=== PATIENT | male | born 1975 | race Two or more races ===

== ENCOUNTER 2022-10-03 11:10 | Inpatient (IN) | payer MEDICAID, OTHER ==
[~2022-10-03] VITALS: Ht 177.8 cm; Wt 100.2 kg
[2022-10-03] MEDS ORDERED: SODIUM CHLORIDE 0.9% 1,000 ML IV ONE (12:15)
[2022-10-03 13:10] LABS: HEMATOCRIT. 43.3 % (42.0-52.0); HEMOGLOBIN. 14.5 g/dL (14.0-18.0); MEAN CORPUSCULAR HEMOGLOBIN 27.7 pg (28.0-32.0); MEAN CORPUSCULAR VOLUME 82.7 fL (80.0-94.0); MEAN PLATELET VOLUME 9.1 fl (7.4-10.4); PLATELET 211 x1000/uL (130-400); RED BLOOD CELL COUNT 5.24 mill/uL (4.7-6.1); RED CELL DISTRIBUTION WIDTH 17.5 % (11.6-14.6)
[2022-10-03 13:20] LABS: CLARITY URINE CLEAR (CLEAR); COLOR URINE DARK YELLOW (YELLOW); KETONES URINE TRACE (NEGATIVE); LEUKOCYTE ESTERASE URINE NEGATIVE (NEGATIVE); NITRITE URINE NEGATIVE (NEGATIVE); OCCULT BLOOD URINE NEGATIVE (NEGATIVE); PROTEIN URINE 1+ (NEGATIVE); SPECIFIC GRAVITY URINE 1.032 (1.005-1.030)
[2022-10-03 13:23] LABS: CHLORIDE 113 mEq/L (98-107)
[2022-10-03 13:35] LABS: INR 1.1; PROTHROMBIN TIME 11.4 sec (9.6-11.0)
[2022-10-03 13:40] LABS: CREATINE KINASE 27 IU/L (39-308); ETHANOL BLOOD < 10 mg/dL (-10)
[2022-10-03 13:52] LABS: BG BASE EXCESS -1.9 mmol/L (-2.0-2.0); BG CARBOXYHEMOGLOBIN 0.9 % (0.5-1.5); BG DEOXYHEMOGLOBIN 4.1 % (0.0-5.0); BG FRACTION INSPIRED OXYGEN 21; BG HCO3 ACT 22.4 mmol/L (22.0-26.0); BG METHEMOGLOBIN 0.3 % (0.0-1.5); BG OXYGEN SATURATION 95.9 % (92.0-98.5); BG OXYHEMOGLOBIN 94.7 % (94.0-97.0); BG PCO2 37.1 mmHg (35.0-45.0); BG PH 7.399 (7.350-7.450); BG PO2 79.4 mmHg (75.0-100.0); BG SAMPLE SITE RIGHT RADIAL; BG TOTAL HEMOGLOBIN 14.4 g/dL (12.0-18.0); BG VENT MODE ROOM AIR
[2022-10-03] MEDS ORDERED: SODIUM CHLORIDE 0.9% 1000ML BAG (SEPSIS BOLUS) IV ONE (14:00)
[2022-10-03] MEDS ORDERED: VANCOMYCIN 1G PREMIX 200 ML IV ONE (14:00)
[2022-10-03] MEDS ORDERED: ACETAMINOPHEN 650MG SUPP PR ONE (14:00)
[2022-10-03] MEDS ORDERED: PIPERACILLIN/TAZ 3.375G PREMIX 50 ML IV ONE (14:00)
[2022-10-03] MEDS ORDERED: CEFTRIAXONE 2GM/50ML (ADDEASE) 50 ML IV ONE (14:00)
[2022-10-03] MEDS ORDERED: LIDOCAINE HCL 1% 10 MG/ML 10ML VIAL ONE (14:05)
[2022-10-03 14:23] LABS: PLATELET ESTIMATE NORMAL
[2022-10-03 14:27] LABS: *AMPHETAMINES SCREEN URINE NEGATIVE (NEGATIVE); *BARBITURATES SCREEN URINE NEGATIVE (NEGATIVE); *BENZODIAZEPINES SCREEN URINE NEGATIVE (NEGATIVE); *COCAINE SCREEN URINE NEGATIVE (NEGATIVE); CANNABINOID URINE SCREEN NEGATIVE (NEGATIVE); METHADONE URINE SCREEN NEGATIVE (NEGATIVE); OPIATES URINE SCREEN NEGATIVE (NEGATIVE); PHENCYCLIDINE URINE SCREEN NEGATIVE (NEGATIVE)
[2022-10-03] MEDS ORDERED: CEFTRIAXONE 2 G in DEXTROSE 5% WATER 50 ML IV NR (15:00)
[2022-10-03 15:24] LABS: GLUCOSE CSF 87 mg/dL (41-75)
[2022-10-03 17:07] VITALS: BP 136/84; PULSE 72; RESP 12; TEMP 97.6
[2022-10-03] MEDS ORDERED: VANCOMYCIN 1G PREMIX 200 ML IV SCH (17:30)
[2022-10-03] MEDS ORDERED: DIPHENHYDRAMINE 50MG/ML VIAL IV PRN (17:30)
[2022-10-03] MEDS: DEXT 5%/0.45% NACL 1000ML 1,000 ML IV SCH (17:30)
[2022-10-03] MEDS ORDERED: PIPERACILLIN/TAZ 3.375G PREMIX 50 ML IV SCH (17:30)
[2022-10-03] MEDS ORDERED: LORAZEPAM 2MG/ML CPJ IV PRN (17:30)
[2022-10-03] MEDS ORDERED: ACETAMINOPHEN 650MG SUPP PR PRN (17:30)
[2022-10-03] MEDS ORDERED: ONDANSETRON HCL 4MG/2ML INJ IV PRN (17:30)
[2022-10-03 17:52] LABS: CLARITY URINE TURBID (CLEAR); COLOR URINE YELLOW (YELLOW); KETONES URINE TRACE (NEGATIVE); LEUKOCYTE ESTERASE URINE NEGATIVE (NEGATIVE); NITRITE URINE NEGATIVE (NEGATIVE); OCCULT BLOOD URINE NEGATIVE (NEGATIVE); PROTEIN URINE 1+ (NEGATIVE); SPECIFIC GRAVITY URINE 1.029 (1.005-1.030)
[2022-10-03 18:00] VITALS: BP 150/86; PULSE 66; RESP 15; TEMP 97.6
[2022-10-03] MEDS: LEVETIRACETAM 500MG PREMIX 100 ML IV SCH (18:50)
[2022-10-03 20:00] VITALS: BP 115/71; PULSE 66; RESP 12; TEMP 97.5
[2022-10-03] MEDS: VANCOMYCIN 1G PREMIX 200 ML IV SCH (20:54)
[2022-10-04] VITALS: BP 108/72; PULSE 58; RESP 11; TEMP 98.7
[2022-10-04] MEDS: PIPERACILLIN/TAZOBACTAM 3.375G in DEXT 5% WATER 50ML IV SCH ×4 (00:03→22:45)
[2022-10-04] MEDS: VANCOMYCIN 1G PREMIX 200 ML IV SCH ×3 (03:50→20:40)
[2022-10-04 04:00] VITALS: BP 107/68; PULSE 61; RESP 14; TEMP 98.4
[2022-10-04 08:00] VITALS: BP 125/74; PULSE 71; RESP 17; TEMP 99
[2022-10-04] MEDS: LEVETIRACETAM 500MG PREMIX 100 ML IV SCH ×2 (08:47→21:29)
[2022-10-04 12:00] VITALS: BP 131/86; PULSE 67; RESP 13; TEMP 98.8
[2022-10-04] MEDS: DEXT 5%/0.45% NACL 1000ML 1,000 ML IV SCH ×2 (12:48→22:46)
[2022-10-04 16:00] VITALS: BP 111/76; PULSE 75; RESP 18; TEMP 98.5
[2022-10-04 20:00] VITALS: BP 115/76; PULSE 58; RESP 16; TEMP 97.7
[2022-10-05] VITALS: BP 102/69; PULSE 55; RESP 18; TEMP 98.5
[2022-10-05 02:38] LABS: CHLORIDE 113 mEq/L (98-107)
[2022-10-05 04:00] VITALS: BP 119/77; PULSE 60; RESP 20; TEMP 97.9
[2022-10-05] MEDS: VANCOMYCIN 1G PREMIX 200 ML IV SCH (04:18)
[2022-10-05] MEDS: PIPERACILLIN/TAZOBACTAM 3.375G in DEXT 5% WATER 50ML IV SCH ×3 (06:51→21:02)
[2022-10-05 07:20] LABS: CHLORIDE 111 mEq/L (98-107)
[2022-10-05 07:22] LABS: BASOPHILS % 0.3 % (0.0-2.0); EOSINOPHILS % 1.7 % (0.0-5.0); HEMATOCRIT. 35.7 % (42.0-52.0); HEMOGLOBIN. 12.1 g/dL (14.0-18.0); LYMPHOCYTES % 8.8 % (20.0-50.0); MEAN CORPUSCULAR HEMOGLOBIN 28.4 pg (28.0-32.0); MEAN CORPUSCULAR VOLUME 83.7 fL (80.0-94.0); MEAN PLATELET VOLUME 9.2 fl (7.4-10.4); NEUTROPHILS % 82.2 % (40.0-76.0); PLATELET 155 x1000/uL (130-400); RED BLOOD CELL COUNT 4.27 mill/uL (4.7-6.1); RED CELL DISTRIBUTION WIDTH 16.8 % (11.6-14.6)
[2022-10-05 08:00] VITALS: BP 127/82; PULSE 64; RESP 18; TEMP 97.8
[2022-10-05] MEDS: LEVETIRACETAM 500MG PREMIX 100 ML IV SCH ×2 (08:53→21:02)
[2022-10-05] MEDS ORDERED: POTASSIUM CHLORIDE INJ 40 MEQ in DEXT 5% WATER 250 ML IV ONE (11:15)
[2022-10-05 12:00] VITALS: BP 121/79; PULSE 56; RESP 18; TEMP 97.6
[2022-10-05] MEDS: KCL 20MEQ/100ML X 2 FOR TOTAL KCL 40MEQ/200ML IV SCH ×2 (12:56→15:33)
[2022-10-05] MEDS: DEXT 5%/0.45% NACL 1000ML 1,000 ML IV SCH (12:56)
[2022-10-05 16:00] VITALS: BP 132/81; PULSE 71; RESP 20; TEMP 98.8
[2022-10-05 20:00] VITALS: BP 120/78; PULSE 70; RESP 18; TEMP 98.5
[2022-10-06] VITALS: BP 116/73; PULSE 69; RESP 18; TEMP 99.1
[2022-10-06 04:00] VITALS: BP 130/71; PULSE 79; RESP 18; TEMP 98.5
[2022-10-06] MEDS: DEXT 5%/0.45% NACL 1000ML 1,000 ML IV SCH ×2 (04:45→04:46)
[2022-10-06] MEDS: PIPERACILLIN/TAZOBACTAM 3.375G in DEXT 5% WATER 50ML IV SCH (05:26)
[2022-10-06] MEDS ORDERED: POTASSIUM CHLORIDE INJ 40 MEQ in DEXT 5% WATER 250 ML IV ONE (08:15)
[2022-10-06] MEDS: LEVETIRACETAM 500MG PREMIX 100 ML IV SCH ×2 (08:49→21:42)
[2022-10-06] MEDS: KCL 20MEQ/100ML X 2 FOR TOTAL KCL 40MEQ/200ML IV SCH ×2 (09:23→11:39)
[2022-10-06 16:00] VITALS: BP 130/89; PULSE 71; RESP 17; TEMP 98.1
[2022-10-06] MEDS: DEXT 5%/0.45% NACL KCL 10MEQ/L 1,000 ML IV SCH (17:41)
[2022-10-06 20:00] VITALS: BP 133/83; PULSE 72; RESP 20; TEMP 99.1
[2022-10-07] VITALS: BP 132/76; PULSE 71; RESP 20; TEMP 98.6
[2022-10-07 04:00] VITALS: BP 112/73; PULSE 71; RESP 20; TEMP 98.8
[2022-10-07] MEDS: DEXT 5%/0.45% NACL KCL 10MEQ/L 1,000 ML IV SCH ×3 (04:29→22:50)
[2022-10-07 08:00] VITALS: BP 124/77; PULSE 77; RESP 18; TEMP 97.4
[2022-10-07 08:18] LABS: HEMATOCRIT 38.1 % (42.0-52.0); HEMOGLOBIN 12.6 g/dL (14.0-18.0)
[2022-10-07] MEDS: LEVETIRACETAM 500MG PREMIX 100 ML IV SCH ×2 (09:19→20:22)
[2022-10-07] MEDS: ACETAMINOPHEN 650MG SUPP PR PRN (10:50)
[2022-10-07 12:27] VITALS: BP 116/74; PULSE 66; RESP 20; TEMP 99.1
[2022-10-07 16:00] VITALS: BP 142/87; PULSE 67; RESP 19; TEMP 98
[2022-10-07] MEDS ORDERED: GADOTERATE MEGLUMINE 5 MMOL/10 ML VIAL IV ONE (19:40)
[2022-10-07 20:00] VITALS: BP 114/81; PULSE 70; RESP 18; TEMP 99.7
[2022-10-08] VITALS: BP 112/70; PULSE 74; RESP 18; TEMP 98.7
[2022-10-08 04:00] VITALS: BP 103/50; PULSE 64; RESP 20; TEMP 98.8
[2022-10-08 08:00] VITALS: BP 143/90; PULSE 58; RESP 17; TEMP 96.9
[2022-10-08] MEDS: LEVETIRACETAM 500MG PREMIX 100 ML IV SCH ×2 (09:25→20:35)
[2022-10-08 12:00] VITALS: BP 163/92; PULSE 58; RESP 20; TEMP 100
[2022-10-08 15:48] LABS: *HSV 1 DNA PCR NEGATIVE; *HSV 2 DNA PCR NEGATIVE
[2022-10-08 16:00] VITALS: BP 147/90; PULSE 69; RESP 19; TEMP 100.8
[2022-10-08 20:00] VITALS: BP 153/95; PULSE 74; RESP 18; TEMP 99
[2022-10-09] VITALS: BP 148/88; PULSE 69; RESP 18; TEMP 98.8
[2022-10-09] MEDS: LACTULOSE 20G/30ML UDC NG SCH ×4 (00:09→21:42)
[2022-10-09 04:00] VITALS: BP 141/93; PULSE 71; RESP 18; TEMP 98.8
[2022-10-09] MEDS: DEXT 5%/0.45% NACL KCL 10MEQ/L 1,000 ML IV SCH ×2 (05:18→14:42)
[2022-10-09 07:10] LABS: INR 1.1; PROTHROMBIN TIME 11.8 sec (9.6-11.0)
[2022-10-09 07:12] LABS: BASOPHILS % 0.4 % (0.0-2.0); EOSINOPHILS % 0.9 % (0.0-5.0); HEMATOCRIT. 36.5 % (42.0-52.0); HEMOGLOBIN. 12.2 g/dL (14.0-18.0); LYMPHOCYTES % 7.1 % (20.0-50.0); MEAN CORPUSCULAR HEMOGLOBIN 28.2 pg (28.0-32.0); MEAN CORPUSCULAR VOLUME 84.4 fL (80.0-94.0); MEAN PLATELET VOLUME 9.3 fl (7.4-10.4); MONOCYTES % 7.3 % (2.0-8.0); NEUTROPHILS % 84.3 % (40.0-76.0); PLATELET 189 x1000/uL (130-400); RED BLOOD CELL COUNT 4.32 mill/uL (4.7-6.1); RED CELL DISTRIBUTION WIDTH 17.8 % (11.6-14.6)
[2022-10-09 08:00] VITALS: BP 142/87; PULSE 76; RESP 19; TEMP 99
[2022-10-09] MEDS: LEVETIRACETAM 500MG PREMIX 100 ML IV SCH ×2 (09:00→21:42)
[2022-10-09] MEDS: ACETAMINOPHEN 650MG SUPP PR PRN (11:51)
[2022-10-09 12:00] VITALS: BP 140/87; PULSE 76; RESP 18; TEMP 99
[2022-10-09] MEDS: RISPERIDONE 1MG TABLET NG SCH ×2 (14:56→21:42)
[2022-10-09 16:00] VITALS: BP 150/87; PULSE 70; RESP 19; TEMP 99
[2022-10-09 20:00] VITALS: BP 131/90; PULSE 79; RESP 17; TEMP 99
[2022-10-10] MEDS: DEXT 5%/0.45% NACL KCL 10MEQ/L 1,000 ML IV SCH ×2 (00:28→10:30)
[2022-10-10 04:00] VITALS: BP 141/88; PULSE 78; RESP 18; TEMP 98.1
[2022-10-10] MEDS: LACTULOSE 20G/30ML UDC NG SCH ×3 (05:25→21:11)
[2022-10-10 06:10] LABS: BASOPHILS % 0.3 % (0.0-2.0); EOSINOPHILS % 2.1 % (0.0-5.0); HEMATOCRIT. 36.5 % (42.0-52.0); HEMOGLOBIN. 11.7 g/dL (14.0-18.0); MEAN CORPUSCULAR HEMOGLOBIN 27.6 pg (28.0-32.0); MEAN CORPUSCULAR VOLUME 85.8 fL (80.0-94.0); MEAN PLATELET VOLUME 9.3 fl (7.4-10.4); MONOCYTES % 9.6 % (2.0-8.0); PLATELET 198 x1000/uL (130-400); RED BLOOD CELL COUNT 4.26 mill/uL (4.7-6.1); RED CELL DISTRIBUTION WIDTH 17.7 % (11.6-14.6)
[2022-10-10 08:00] VITALS: BP 146/87; PULSE 81; RESP 18; TEMP 97.8
[2022-10-10] MEDS: RISPERIDONE 1MG TABLET NG SCH ×2 (08:59→21:11)
[2022-10-10] MEDS: LEVETIRACETAM 500MG PREMIX 100 ML IV SCH ×2 (08:59→21:11)
[2022-10-10 12:00] VITALS: BP 132/83; PULSE 74; RESP 18; TEMP 97.7
[2022-10-10] MEDS ORDERED: BISACODYL 10MG SUPP PR PRN (13:15)
[2022-10-10] MEDS ORDERED: DEXTROSE 5% WATER 1,000 ML IV SCH ×2 (14:45→15:15)
[2022-10-10 16:00] VITALS: BP 141/89; PULSE 69; RESP 18; TEMP 97.7
[2022-10-10 20:00] VITALS: BP 138/72; PULSE 72; RESP 18; TEMP 99
[2022-10-10] MEDS: DEXT 5% WATER + KCL 20MEQ/L 1,000 ML IV SCH (21:15)
[2022-10-11] VITALS: BP 140/82; PULSE 72; RESP 18; TEMP 99.1
[2022-10-11] MEDS: DEXT 5% WATER + KCL 20MEQ/L 1,000 ML IV SCH ×3 (02:30→22:30)
[2022-10-11 04:00] VITALS: BP 141/64; PULSE 75; RESP 18; TEMP 97
[2022-10-11] MEDS: LACTULOSE 20G/30ML UDC NG SCH ×3 (05:19→22:19)
[2022-10-11 07:43] LABS: BASOPHILS % 0.4 % (0.0-2.0); EOSINOPHILS % 3.1 % (0.0-5.0); HEMOGLOBIN. 11.5 g/dL (14.0-18.0); LYMPHOCYTES % 8.4 % (20.0-50.0); MEAN CORPUSCULAR HEMOGLOBIN 28.3 pg (28.0-32.0); MEAN PLATELET VOLUME 9.2 fl (7.4-10.4); MONOCYTES % 6.3 % (2.0-8.0); NEUTROPHILS % 81.8 % (40.0-76.0); PLATELET 196 x1000/uL (130-400); RED BLOOD CELL COUNT 4.05 mill/uL (4.7-6.1); RED CELL DISTRIBUTION WIDTH 17.6 % (11.6-14.6)
[2022-10-11 08:00] VITALS: BP 135/85; PULSE 74; RESP 16; TEMP 97.9
[2022-10-11] MEDS: LEVETIRACETAM 500MG PREMIX 100 ML IV SCH ×2 (08:15→22:19)
[2022-10-11] MEDS: RISPERIDONE 1MG TABLET NG SCH ×2 (08:15→22:18)
[2022-10-11 12:00] VITALS: BP 132/82; PULSE 73; RESP 18; TEMP 99.7
[2022-10-11 16:00] VITALS: BP 135/86; PULSE 84; RESP 18; TEMP 99.3
[2022-10-11] MEDS: DOCUSATE SODIUM SUGAR FREE 100MG/10ML UDC GT SCH (16:00)
[2022-10-11 20:00] VITALS: BP 137/91; PULSE 75; RESP 18; TEMP 97.9
[2022-10-12] VITALS: BP 126/81; PULSE 83; RESP 17; TEMP 97.7
[2022-10-12 04:00] VITALS: BP 111/79; PULSE 78; RESP 18; TEMP 98.2
[2022-10-12] MEDS: LACTULOSE 20G/30ML UDC NG SCH ×3 (05:19→22:20)
[2022-10-12 07:15] LABS: BASOPHILS % 0.2 % (0.0-2.0); EOSINOPHILS % 2.7 % (0.0-5.0); HEMATOCRIT. 35.8 % (42.0-52.0); LYMPHOCYTES % 11.3 % (20.0-50.0); MEAN CORPUSCULAR VOLUME 83.6 fL (80.0-94.0); MONOCYTES % 6.7 % (2.0-8.0); NEUTROPHILS % 79.1 % (40.0-76.0); PLATELET 185 x1000/uL (130-400); RED BLOOD CELL COUNT 4.28 mill/uL (4.7-6.1); RED CELL DISTRIBUTION WIDTH 17.2 % (11.6-14.6)
[2022-10-12 08:00] VITALS: BP 122/80; PULSE 74; RESP 17; TEMP 96.8
[2022-10-12] MEDS: LEVETIRACETAM 500MG PREMIX 100 ML IV SCH ×2 (08:02→20:30)
[2022-10-12] MEDS: DOCUSATE SODIUM SUGAR FREE 100MG/10ML UDC GT SCH (08:02)
[2022-10-12] MEDS: DEXT 5% WATER + KCL 20MEQ/L 1,000 ML IV SCH ×2 (08:02→22:28)
[2022-10-12] MEDS: RISPERIDONE 1MG TABLET NG SCH ×2 (08:03→20:37)
[2022-10-12 12:00] VITALS: BP 120/75; PULSE 70; RESP 15; TEMP 96.7
[2022-10-12 16:00] VITALS: BP 118/70; PULSE 68; RESP 17; TEMP 97.3
[2022-10-12 20:00] VITALS: BP 136/79; PULSE 70; RESP 20; TEMP 98.1
[2022-10-12] MEDS: LEVETIRACETAM 500MG/5ML CUP NG SCH (20:46)
[2022-10-13] VITALS (7 sets, daily range): BP systolic 93–140; BP diastolic 54–89; PULSE 68–86; RESP 18–20; TEMP 97.1–98.8
[2022-10-13] MEDS: LACTULOSE 20G/30ML UDC NG SCH ×3 (06:00→21:40)
[2022-10-13 06:57] LABS: CHLORIDE 109 mEq/L (98-107)
[2022-10-13] MEDS ORDERED: CEFAZOLIN 1000MG PREMIX 50 ML IV NR (07:00)
[2022-10-13 07:24] LABS: BASOPHILS % 0.3 % (0.0-2.0); EOSINOPHILS % 2.6 % (0.0-5.0); HEMATOCRIT. 34.7 % (42.0-52.0); HEMOGLOBIN. 11.6 g/dL (14.0-18.0); LYMPHOCYTES % 10.8 % (20.0-50.0); MEAN CORPUSCULAR HEMOGLOBIN 27.9 pg (28.0-32.0); MEAN CORPUSCULAR VOLUME 83.1 fL (80.0-94.0); MEAN PLATELET VOLUME 9.2 fl (7.4-10.4); MONOCYTES % 6.3 % (2.0-8.0); PLATELET 197 x1000/uL (130-400); RED BLOOD CELL COUNT 4.17 mill/uL (4.7-6.1); RED CELL DISTRIBUTION WIDTH 16.9 % (11.6-14.6)
[2022-10-13] MEDS: RISPERIDONE 1MG TABLET NG SCH ×2 (09:00→21:41)
[2022-10-13] MEDS: LEVETIRACETAM 500MG/5ML CUP NG SCH ×2 (09:00→21:40)
[2022-10-13] MEDS: DOCUSATE SODIUM SUGAR FREE 100MG/10ML UDC GT SCH (09:00)
[2022-10-13] MEDS: DEXT 5% WATER + KCL 20MEQ/L 1,000 ML IV SCH ×2 (11:05→17:44)
[2022-10-13] MEDS ORDERED: PROPOFOL 200MG/20ML VIAL IV ONE ×2 (15:24→16:07)
[2022-10-13] MEDS ORDERED: LIDOCAINE HCL 1% 10 MG/ML 10ML VIAL ONE (15:24)
[2022-10-13] MEDS ORDERED: CEFAZOLIN SODIUM 1000MG/VIAL ONE (15:26)
[2022-10-13] MEDS: SUCRALFATE 1 G/10 ML UDC PO SCH (17:51)
[2022-10-14] VITALS: BP 127/87; PULSE 89; RESP 16; TEMP 97.8
[2022-10-14] MEDS: DEXT 5% WATER + KCL 20MEQ/L 1,000 ML IV SCH ×3 (00:30→21:19)
[2022-10-14 04:00] VITALS: BP 116/83; PULSE 86; RESP 19; TEMP 97.1
[2022-10-14] MEDS: SUCRALFATE 1 G/10 ML UDC PO SCH ×4 (05:56→18:00)
[2022-10-14] MEDS: METOCLOPRAMIDE HCL 10MG/2ML VIAL IV SCH ×3 (05:56→18:00)
[2022-10-14] MEDS: LACTULOSE 20G/30ML UDC NG SCH (05:56)
[2022-10-14 08:00] VITALS: BP 105/81; PULSE 94; RESP 20; TEMP 96.6
[2022-10-14] MEDS: LEVETIRACETAM 500MG/5ML CUP NG SCH ×2 (08:29→21:19)
[2022-10-14] MEDS: DOCUSATE SODIUM SUGAR FREE 100MG/10ML UDC GT SCH ×2 (08:29→17:03)
[2022-10-14] MEDS: PANTOPRAZOLE SODIUM 40 MG/VIAL IV SCH (08:36)
[2022-10-14] MEDS: RISPERIDONE 1MG TABLET NG SCH ×2 (08:36→21:19)
[2022-10-14 09:51] LABS: BASOPHILS % 0.2 % (0.0-2.0); EOSINOPHILS % 1.5 % (0.0-5.0); HEMOGLOBIN. 12.8 g/dL (14.0-18.0); LYMPHOCYTES % 9.7 % (20.0-50.0); MEAN CORPUSCULAR HEMOGLOBIN 27.6 pg (28.0-32.0); MEAN CORPUSCULAR VOLUME 84.3 fL (80.0-94.0); MONOCYTES % 5.9 % (2.0-8.0); NEUTROPHILS % 82.7 % (40.0-76.0); PLATELET 211 x1000/uL (130-400); RED BLOOD CELL COUNT 4.63 mill/uL (4.7-6.1); RED CELL DISTRIBUTION WIDTH 16.7 % (11.6-14.6)
[2022-10-14 12:00] VITALS: BP 120/94; PULSE 82; RESP 19; TEMP 96.6
[2022-10-14] MEDS: LACTULOSE 20G/30ML UDC PEG SCH ×2 (14:07→21:18)
[2022-10-14 14:16] LABS: TOTAL IRON BINDING CAPACITY 210 ug/dL (250-450)
[2022-10-14 14:42] LABS: VITAMIN B12 SERUM 274 pg/mL (211-911)
[2022-10-14 16:00] VITALS: BP 135/87; PULSE 70; RESP 19; TEMP 97.9
[2022-10-14 20:00] VITALS: BP 116/79; PULSE 76; RESP 18; TEMP 96.8
[2022-10-15] VITALS: BP 120/83; PULSE 75; RESP 18; TEMP 96.6
[2022-10-15] MEDS: SUCRALFATE 1 G/10 ML UDC PO SCH ×4 (00:27→18:52)
[2022-10-15] MEDS: METOCLOPRAMIDE HCL 10MG/2ML VIAL IV SCH ×4 (00:27→18:52)
[2022-10-15 04:00] VITALS: BP 134/92; PULSE 70; RESP 19; TEMP 96.4
[2022-10-15] MEDS: LACTULOSE 20G/30ML UDC PEG SCH ×3 (06:00→21:59)
[2022-10-15 06:29] LABS: BASOPHILS % 0.4 % (0.0-2.0); EOSINOPHILS % 2.1 % (0.0-5.0); HEMATOCRIT. 36.6 % (42.0-52.0); HEMOGLOBIN. 12.2 g/dL (14.0-18.0); MEAN PLATELET VOLUME 9.6 fl (7.4-10.4); MONOCYTES % 7.5 % (2.0-8.0); PLATELET 195 x1000/uL (130-400); RED BLOOD CELL COUNT 4.35 mill/uL (4.7-6.1); RED CELL DISTRIBUTION WIDTH 16.7 % (11.6-14.6)
[2022-10-15] MEDS: DEXT 5% WATER + KCL 20MEQ/L 1,000 ML IV SCH ×2 (06:30→16:30)
[2022-10-15 08:00] VITALS: BP 130/87; PULSE 79; RESP 20; TEMP 98.2
[2022-10-15] MEDS: LEVETIRACETAM 500MG/5ML CUP NG SCH ×2 (08:49→21:59)
[2022-10-15] MEDS: PANTOPRAZOLE SODIUM 40 MG/VIAL IV SCH (08:49)
[2022-10-15] MEDS: DOCUSATE SODIUM SUGAR FREE 100MG/10ML UDC GT SCH ×2 (08:50→17:00)
[2022-10-15] MEDS: RISPERIDONE 1MG TABLET NG SCH ×2 (08:50→21:59)
[2022-10-15 12:00] VITALS: BP 107/69; PULSE 71; RESP 20; TEMP 97.7
[2022-10-15 16:00] VITALS: BP 131/84; PULSE 75; RESP 19; TEMP 97.5
[2022-10-15 20:00] VITALS: BP 128/83; PULSE 75; RESP 20; TEMP 97.9
[2022-10-16] VITALS: BP 134/87; PULSE 76; RESP 18; TEMP 97.9
[2022-10-16] MEDS: METOCLOPRAMIDE HCL 10MG/2ML VIAL IV SCH
[2022-10-16] MEDS ORDERED: METOCLOPRAMIDE HCL 10MG/2ML VIAL IV NR (01:45)
[2022-10-16] MEDS: DEXT 5% WATER + KCL 20MEQ/L 1,000 ML IV SCH (02:30)
[2022-10-16 06:41] LABS: BASOPHILS % 0.1 % (0.0-2.0); EOSINOPHILS % 2.1 % (0.0-5.0); HEMATOCRIT. 36.9 % (42.0-52.0); HEMOGLOBIN. 12.2 g/dL (14.0-18.0); LYMPHOCYTES % 16.8 % (20.0-50.0); MEAN CORPUSCULAR HEMOGLOBIN 27.6 pg (28.0-32.0); MEAN CORPUSCULAR VOLUME 83.5 fL (80.0-94.0); MEAN PLATELET VOLUME 9.5 fl (7.4-10.4); MONOCYTES % 8.2 % (2.0-8.0); NEUTROPHILS % 72.8 % (40.0-76.0); PLATELET 204 x1000/uL (130-400); RED BLOOD CELL COUNT 4.43 mill/uL (4.7-6.1)
[2022-10-16] MEDS: SUCRALFATE 1 G/10 ML UDC PO SCH ×4 (07:04→18:49)
[2022-10-16] MEDS: LACTULOSE 20G/30ML UDC PEG SCH ×3 (07:04→22:16)
[2022-10-16 08:00] VITALS: BP 136/88; PULSE 79; RESP 18; TEMP 97.5
[2022-10-16] MEDS: RISPERIDONE 1MG TABLET NG SCH ×2 (09:00→22:16)
[2022-10-16] MEDS: DOCUSATE SODIUM SUGAR FREE 100MG/10ML UDC GT SCH ×2 (09:00→17:37)
[2022-10-16] MEDS: LEVETIRACETAM 500MG/5ML CUP NG SCH ×2 (09:00→22:16)
[2022-10-16] MEDS: PANTOPRAZOLE SODIUM 40 MG/VIAL IV SCH (09:00)
[2022-10-16] MEDS: CYANOCOBALAMIN 1000MCG/ML VIAL IM SCH (09:00)
[2022-10-16] MEDS: FOLIC ACID 1MG TABLET GT SCH (09:00)
[2022-10-16 12:00] VITALS: BP 119/83; PULSE 82; RESP 18; TEMP 97.7
[2022-10-16 16:00] VITALS: BP 122/77; PULSE 82; RESP 20; TEMP 97.7
[2022-10-16] MEDS: ACETAMINOPHEN 650MG SUPP PR PRN (17:37)
[2022-10-16 19:40] LABS: FERRITIN 186 ng/mL (22-322)
[2022-10-16 20:00] VITALS: BP 136/80; PULSE 98; RESP 19; TEMP 97.9
[2022-10-17 04:00] VITALS: BP 121/86; PULSE 87; RESP 19; TEMP 98.5
[2022-10-17 05:53] LABS: CHLORIDE 104 mEq/L (98-107)
[2022-10-17 06:08] LABS: BASOPHILS % 0.1 % (0.0-2.0); EOSINOPHILS % 1.2 % (0.0-5.0); HEMATOCRIT. 37.2 % (42.0-52.0); HEMOGLOBIN. 12.3 g/dL (14.0-18.0); LYMPHOCYTES % 11.1 % (20.0-50.0); MEAN CORPUSCULAR HEMOGLOBIN 27.6 pg (28.0-32.0); MEAN CORPUSCULAR VOLUME 83.6 fL (80.0-94.0); MEAN PLATELET VOLUME 9.5 fl (7.4-10.4); MONOCYTES % 6.8 % (2.0-8.0); NEUTROPHILS % 80.8 % (40.0-76.0); PLATELET 214 x1000/uL (130-400); RED BLOOD CELL COUNT 4.45 mill/uL (4.7-6.1); RED CELL DISTRIBUTION WIDTH 16.2 % (11.6-14.6)
[2022-10-17] MEDS: LACTULOSE 20G/30ML UDC PEG SCH ×3 (06:33→21:57)
[2022-10-17] MEDS: SUCRALFATE 1 G/10 ML UDC PO SCH ×5 (06:33→23:35)
[2022-10-17 08:00] VITALS: BP 115/76; PULSE 99; RESP 19; TEMP 98.4
[2022-10-17] MEDS: DOCUSATE SODIUM SUGAR FREE 100MG/10ML UDC GT SCH ×2 (09:15→17:47)
[2022-10-17] MEDS: LEVETIRACETAM 500MG/5ML CUP NG SCH ×2 (09:15→21:57)
[2022-10-17] MEDS: FOLIC ACID 1MG TABLET GT SCH (09:16)
[2022-10-17] MEDS: RISPERIDONE 1MG TABLET NG SCH ×2 (09:16→21:57)
[2022-10-17] MEDS: CYANOCOBALAMIN 1000MCG/ML VIAL IM SCH (09:16)
[2022-10-17] MEDS: PANTOPRAZOLE SODIUM 40 MG/VIAL IV SCH (09:16)
[2022-10-17 12:00] VITALS: BP 126/80; PULSE 99; RESP 18; TEMP 101.8
[2022-10-17] MEDS: ACETAMINOPHEN 650MG SUPP PR PRN (13:33)
[2022-10-17] MEDS ORDERED: BISACODYL 10MG SUPP PR NR (14:45)
[2022-10-17] MEDS ORDERED: NA PHOS,M-B/NA PHOS,DI-BA ENEMA 118ML PR PRN (14:45)
[2022-10-17 15:58] VITALS: BP 123/80; PULSE 104; RESP 19; TEMP 101.3
[2022-10-17] MEDS: LORAZEPAM 0.5MG TABLET PO SCH (17:47)
[2022-10-17 20:00] VITALS: BP 124/81; PULSE 109; RESP 18; TEMP 101.1
[2022-10-18] VITALS: BP 121/78; PULSE 102; RESP 17; TEMP 99.9
[2022-10-18 04:00] VITALS: BP 112/73; PULSE 91; RESP 18; TEMP 98.1
[2022-10-18] MEDS: LACTULOSE 20G/30ML UDC PEG SCH ×3 (06:00→21:50)
[2022-10-18] MEDS: SUCRALFATE 1 G/10 ML UDC PO SCH ×4 (06:00→23:51)
[2022-10-18 08:00] VITALS: BP 115/69; PULSE 89; RESP 17; TEMP 98.1
[2022-10-18] MEDS: RISPERIDONE 1MG TABLET NG SCH ×2 (08:38→21:50)
[2022-10-18] MEDS: LEVETIRACETAM 500MG/5ML CUP NG SCH ×2 (08:38→21:50)
[2022-10-18] MEDS: LORAZEPAM 0.5MG TABLET PO SCH ×2 (08:38→17:55)
[2022-10-18] MEDS: PANTOPRAZOLE SODIUM 40 MG/VIAL IV SCH (08:38)
[2022-10-18] MEDS: DOCUSATE SODIUM SUGAR FREE 100MG/10ML UDC GT SCH ×2 (08:39→17:54)
[2022-10-18] MEDS: FOLIC ACID 1MG TABLET GT SCH (08:39)
[2022-10-18] MEDS: CYANOCOBALAMIN 1000MCG/ML VIAL IM SCH (08:39)
[2022-10-18 11:38] LABS: BASOPHILS % 0.1 % (0.0-2.0); EOSINOPHILS % 0.8 % (0.0-5.0); HEMATOCRIT. 34.6 % (42.0-52.0); HEMOGLOBIN. 11.5 g/dL (14.0-18.0); LYMPHOCYTES % 11.3 % (20.0-50.0); MEAN CORPUSCULAR HEMOGLOBIN 27.7 pg (28.0-32.0); MEAN CORPUSCULAR VOLUME 83.3 fL (80.0-94.0); MEAN PLATELET VOLUME 9.8 fl (7.4-10.4); MONOCYTES % 8.6 % (2.0-8.0); NEUTROPHILS % 79.2 % (40.0-76.0); PLATELET 205 x1000/uL (130-400); RED BLOOD CELL COUNT 4.15 mill/uL (4.7-6.1); RED CELL DISTRIBUTION WIDTH 16.1 % (11.6-14.6)
[2022-10-18 12:00] VITALS: BP 113/62; PULSE 79; RESP 18; TEMP 97.6
[2022-10-18 16:00] VITALS: BP 105/61; PULSE 87; RESP 17; TEMP 101.1
[2022-10-18 16:23] LABS: CLARITY URINE CLOUDY (CLEAR); COLOR URINE YELLOW (YELLOW); KETONES URINE NEGATIVE (NEGATIVE); LEUKOCYTE ESTERASE URINE 3+ (NEGATIVE); NITRITE URINE POSITIVE (NEGATIVE); OCCULT BLOOD URINE TRACE (NEGATIVE); PROTEIN URINE TRACE (NEGATIVE); SPECIFIC GRAVITY URINE 1.015 (1.005-1.030)
[2022-10-18] MEDS: CEFEPIME 2,000 MG in DEXT 5% WATER 100 ML IV SCH (17:54)
[2022-10-18 20:00] VITALS: BP 96/62; PULSE 89; RESP 18; TEMP 98.2
[2022-10-19] VITALS: BP 98/66; PULSE 100; RESP 19; TEMP 98
[2022-10-19 04:00] VITALS: BP 92/51; PULSE 88; RESP 18; TEMP 97.3
[2022-10-19] MEDS: LACTULOSE 20G/30ML UDC PEG SCH ×3 (06:00→21:33)
[2022-10-19] MEDS: SUCRALFATE 1 G/10 ML UDC PO SCH ×3 (06:00→18:13)
[2022-10-19] MEDS: CEFEPIME 2,000 MG in DEXT 5% WATER 100 ML IV SCH ×2 (06:45→18:07)
[2022-10-19 08:00] VITALS: BP 105/69; PULSE 81; RESP 20; TEMP 98.1
[2022-10-19] MEDS: LORAZEPAM 0.5MG TABLET PO SCH ×2 (08:22→17:09)
[2022-10-19] MEDS: PANTOPRAZOLE SODIUM 40 MG/VIAL IV SCH (08:22)
[2022-10-19] MEDS: CYANOCOBALAMIN 1000MCG/ML VIAL IM SCH (08:22)
[2022-10-19] MEDS: LEVETIRACETAM 500MG/5ML CUP NG SCH ×2 (08:22→21:33)
[2022-10-19] MEDS: DOCUSATE SODIUM SUGAR FREE 100MG/10ML UDC GT SCH ×2 (08:23→17:08)
[2022-10-19] MEDS: RISPERIDONE 1MG TABLET NG SCH ×2 (08:23→21:33)
[2022-10-19] MEDS: FOLIC ACID 1MG TABLET GT SCH (08:24)
[2022-10-19 12:00] VITALS: BP 117/81; PULSE 83; RESP 21; TEMP 97.7
[2022-10-19 16:00] VITALS: BP 118/76; PULSE 79; RESP 20; TEMP 97.2
[2022-10-19 20:00] VITALS: BP 104/72; PULSE 82; RESP 19; TEMP 99.7
[2022-10-20] VITALS: BP 102/69; PULSE 77; RESP 18; TEMP 98.3
[2022-10-20] MEDS: PIPERACILLIN/TAZOBACTAM 3.375 G in DEXTROSE 5% WATER 50 ML IV SCH (00:35)
[2022-10-20 04:00] VITALS: BP 91/64; PULSE 69; RESP 18; TEMP 99.5
[2022-10-20] MEDS: CEFEPIME 2,000 MG in DEXT 5% WATER 100 ML IV SCH (05:09)
[2022-10-20] MEDS: LACTULOSE 20G/30ML UDC PEG SCH ×3 (05:36→22:06)
[2022-10-20] MEDS: SUCRALFATE 1 G/10 ML UDC PO SCH ×4 (05:36→17:46)
[2022-10-20 06:22] LABS: BASOPHILS % 0.3 % (0.0-2.0); EOSINOPHILS % 2.4 % (0.0-5.0); LYMPHOCYTES % 14.7 % (20.0-50.0); MEAN CORPUSCULAR HEMOGLOBIN 27.7 pg (28.0-32.0); MEAN CORPUSCULAR VOLUME 83.4 fL (80.0-94.0); MEAN PLATELET VOLUME 9.5 fl (7.4-10.4); MONOCYTES % 9.5 % (2.0-8.0); NEUTROPHILS % 73.1 % (40.0-76.0); PLATELET 221 x1000/uL (130-400); RED BLOOD CELL COUNT 3.96 mill/uL (4.7-6.1); RED CELL DISTRIBUTION WIDTH 15.9 % (11.6-14.6)
[2022-10-20 07:03] LABS: CHLORIDE 105 mEq/L (98-107)
[2022-10-20 08:00] VITALS: BP 107/69; PULSE 63; RESP 19; TEMP 98
[2022-10-20] MEDS: DOCUSATE SODIUM SUGAR FREE 100MG/10ML UDC GT SCH ×2 (08:36→17:46)
[2022-10-20] MEDS: LORAZEPAM 0.5MG TABLET PO SCH ×2 (08:36→17:00)
[2022-10-20] MEDS: FOLIC ACID 1MG TABLET GT SCH (08:36)
[2022-10-20] MEDS: LEVETIRACETAM 500MG/5ML CUP NG SCH ×2 (08:37→22:06)
[2022-10-20] MEDS: RISPERIDONE 1MG TABLET NG SCH ×2 (08:37→22:06)
[2022-10-20] MEDS: PANTOPRAZOLE SODIUM 40 MG/VIAL IV SCH (08:37)
[2022-10-20 12:00] VITALS: BP 112/78; PULSE 67; RESP 18; TEMP 97.6
[2022-10-20 16:00] VITALS: BP 107/76; PULSE 74; RESP 19; TEMP 97.5
[2022-10-20 20:00] VITALS: PULSE 73; RESP 17; TEMP 97.2
[2022-10-21] VITALS: BP 109/76; PULSE 70; RESP 17; TEMP 96.8
[2022-10-21] MEDS: SUCRALFATE 1 G/10 ML UDC PO SCH ×5 (00:43→23:26)
[2022-10-21 04:00] VITALS: PULSE 64; RESP 18; TEMP 97.5
[2022-10-21] MEDS: LACTULOSE 20G/30ML UDC PEG SCH ×3 (05:43→23:55)
[2022-10-21] MEDS: PIPERACILLIN/TAZOBACTAM 3.375 G in DEXTROSE 5% WATER 50 ML IV SCH (05:47)
[2022-10-21 08:00] VITALS: BP 118/81; PULSE 71; RESP 21; TEMP 97.1
[2022-10-21] MEDS: DOCUSATE SODIUM SUGAR FREE 100MG/10ML UDC GT SCH ×2 (09:00→17:17)
[2022-10-21] MEDS: PANTOPRAZOLE SODIUM 40 MG/VIAL IV SCH (10:01)
[2022-10-21] MEDS: LORAZEPAM 0.5MG TABLET PO SCH ×2 (10:01→17:17)
[2022-10-21] MEDS: RISPERIDONE 1MG TABLET NG SCH ×2 (10:01→23:28)
[2022-10-21] MEDS: LEVETIRACETAM 500MG/5ML CUP NG SCH ×2 (10:01→21:00)
[2022-10-21] MEDS: FOLIC ACID 1MG TABLET GT SCH (10:01)
[2022-10-21 12:08] VITALS: BP 103/72; PULSE 63; RESP 20; TEMP 97.5
[2022-10-21] MEDS: CEFEPIME 2,000 MG in DEXT 5% WATER 100 ML IV SCH ×2 (13:00→23:26)
[2022-10-21 16:00] VITALS: BP 113/56; PULSE 70; RESP 70; TEMP 97.8
[2022-10-21] MEDS ORDERED: MAGNESIUM HYDROXIDE 400MG/5ML 30ML UDC GT NR (16:45)
[2022-10-21 20:00] VITALS: BP 118/96; RESP 18; TEMP 97.9
[2022-10-22] VITALS: BP 130/78; PULSE 71; RESP 18; TEMP 98.4
[2022-10-22 04:00] VITALS: BP 119/82; PULSE 75; RESP 18; TEMP 97.9
[2022-10-22] MEDS: LACTULOSE 20G/30ML UDC PEG SCH ×3 (06:00→21:06)
[2022-10-22] MEDS: SUCRALFATE 1 G/10 ML UDC PO SCH ×4 (06:08→23:46)
[2022-10-22 08:00] VITALS: BP 106/68; PULSE 73; RESP 18; TEMP 97.9
[2022-10-22] MEDS: DOCUSATE SODIUM SUGAR FREE 100MG/10ML UDC GT SCH ×2 (10:01→18:41)
[2022-10-22] MEDS: LEVETIRACETAM 500MG/5ML CUP NG SCH ×2 (10:01→20:56)
[2022-10-22] MEDS: RISPERIDONE 1MG TABLET NG SCH ×2 (10:01→20:56)
[2022-10-22] MEDS: LORAZEPAM 0.5MG TABLET PO SCH ×2 (10:02→18:42)
[2022-10-22] MEDS: PANTOPRAZOLE SODIUM 40 MG/VIAL IV SCH (10:02)
[2022-10-22] MEDS: FOLIC ACID 1MG TABLET GT SCH (10:02)
[2022-10-22] MEDS: CEFEPIME 2,000 MG in DEXT 5% WATER 100 ML IV SCH ×2 (10:03→20:14)
[2022-10-22 12:00] VITALS: BP 118/77; PULSE 68; RESP 19; TEMP 98.4
[2022-10-22 16:00] VITALS: BP 120/72; PULSE 74; RESP 18; TEMP 97.9
[2022-10-22 20:00] VITALS: BP 117/77; PULSE 69; RESP 16; TEMP 97.7
[2022-10-23] VITALS: BP 116/59; PULSE 72; RESP 18; TEMP 94.8
[2022-10-23 04:00] VITALS: BP 109/77; PULSE 67; RESP 18; TEMP 98.1
[2022-10-23] MEDS: SUCRALFATE 1 G/10 ML UDC PO SCH ×4 (06:00→23:12)
[2022-10-23] MEDS: LACTULOSE 20G/30ML UDC PEG SCH ×3 (06:00→21:44)
[2022-10-23 07:17] LABS: BASOPHILS % 0.2 % (0.0-2.0); EOSINOPHILS % 2.1 % (0.0-5.0); HEMATOCRIT. 35.1 % (42.0-52.0); HEMOGLOBIN. 11.9 g/dL (14.0-18.0); MEAN CORPUSCULAR HEMOGLOBIN 28.1 pg (28.0-32.0); MEAN CORPUSCULAR VOLUME 83.1 fL (80.0-94.0); MEAN PLATELET VOLUME 9.2 fl (7.4-10.4); MONOCYTES % 8.1 % (2.0-8.0); NEUTROPHILS % 68.6 % (40.0-76.0); PLATELET 220 x1000/uL (130-400); RED BLOOD CELL COUNT 4.22 mill/uL (4.7-6.1); RED CELL DISTRIBUTION WIDTH 15.7 % (11.6-14.6)
[2022-10-23 07:47] LABS: CHLORIDE 103 mEq/L (98-107)
[2022-10-23 08:00] VITALS: BP 101/69; PULSE 71; RESP 20; TEMP 98.6
[2022-10-23] MEDS: CEFEPIME 2,000 MG in DEXT 5% WATER 100 ML IV SCH ×2 (08:48→20:39)
[2022-10-23] MEDS: FOLIC ACID 1MG TABLET GT SCH (08:48)
[2022-10-23] MEDS: RISPERIDONE 1MG TABLET NG SCH ×2 (08:48→20:39)
[2022-10-23] MEDS: PANTOPRAZOLE SODIUM 40 MG/VIAL IV SCH (08:49)
[2022-10-23] MEDS: LEVETIRACETAM 500MG/5ML CUP NG SCH ×2 (08:49→20:39)
[2022-10-23] MEDS: DOCUSATE SODIUM SUGAR FREE 100MG/10ML UDC GT SCH ×2 (08:49→16:56)
[2022-10-23 12:00] VITALS: BP 104/70; PULSE 73; RESP 20; TEMP 98.4
[2022-10-23 16:00] VITALS: BP 107/71; PULSE 70; RESP 19; TEMP 98.8
[2022-10-23 20:00] VITALS: BP 112/69; PULSE 70; RESP 18; TEMP 97.9
[2022-10-24] VITALS: BP 108/70; PULSE 68; RESP 18; TEMP 98.9
[2022-10-24 04:00] VITALS: BP 98/63; PULSE 73; RESP 18; TEMP 98.9
[2022-10-24] MEDS: SUCRALFATE 1 G/10 ML UDC PO SCH (06:10)
[2022-10-24] MEDS: LACTULOSE 20G/30ML UDC PEG SCH (06:10)
[2022-10-24] MEDS: FOLIC ACID 1MG TABLET GT SCH (08:06)
[2022-10-24] MEDS: LEVETIRACETAM 500MG/5ML CUP NG SCH (08:06)
[2022-10-24] MEDS: DOCUSATE SODIUM SUGAR FREE 100MG/10ML UDC GT SCH (08:06)
[2022-10-24] MEDS: CEFEPIME 2,000 MG in DEXT 5% WATER 100 ML IV SCH (08:06)
[2022-10-24] MEDS: PANTOPRAZOLE SODIUM 40 MG/VIAL IV SCH (08:06)
[2022-10-24] MEDS: RISPERIDONE 1MG TABLET NG SCH (08:06)
[2022-10-24 11:07] VITALS: BP 108/70; PULSE 73; TEMP 98.9; O2SAT 98
[2022-10-24 12:00] VITALS: BP 123/56; PULSE 69; RESP 20; TEMP 98.4
== END 2022-10-24 12:09 | DRG 720 ==
LOC: ER 11:10 → 3WST 14:41 → EDBEDREQTM 14:43 → EDBEDREQ 14:43 → 6EST 10-06 14:40
PROVIDERS: ADMIT Internal Medicine; ATTEND Internal Medicine
PROC: 009U3ZX Drainage of Spinal Canal, Percutaneous Approach, Diagnostic (ICD-10-PCS; principal; 2022-10-03)
PROC: B01B1ZZ Fluoroscopy of Spinal Cord using Low Osmolar Contrast (ICD-10-PCS; 2022-10-03)
PROC: 4A00X4Z Measurement of Central Nervous Electrical Activity, External Approach (ICD-10-PCS; 2022-10-07)
PROC: 0DH63UZ Insertion of Feeding Device into Stomach, Percutaneous Approach (ICD-10-PCS; 2022-10-13)
PROC: 0DB68ZX Excision of Stomach, Via Natural or Artificial Opening Endoscopic, Diagnostic (ICD-10-PCS; 2022-10-13)
DX: A41.9 Sepsis, unspecified organism (principal); G93.41 Metabolic encephalopathy; E87.20 Acidosis, unspecified; E44.0 Moderate protein-calorie malnutrition; E72.20 Disorder of urea cycle metabolism, unspecified; K22.10 Ulcer of esophagus without bleeding; N17.9 Acute kidney failure, unspecified; E87.1 Hypo-osmolality and hyponatremia; E87.0 Hyperosmolality and hypernatremia; R65.20 Severe sepsis without septic shock; N39.0 Urinary tract infection, site not specified; Z20.822 Contact with and (suspected) exposure to COVID-19; F32.A Depression, unspecified; I10 Essential (primary) hypertension; Z99.3 Dependence on wheelchair; E86.9 Volume depletion, unspecified; K80.20 Calculus of gallbladder without cholecystitis without obstruction; M20.41 Other hammer toe(s) (acquired), right foot; G40.909 Epilepsy, unspecified, not intractable, without status epilepticus; E87.6 Hypokalemia; E66.9 Obesity, unspecified; R74.01 Elevation of levels of liver transaminase levels; S90.212A Contusion of left great toe with damage to nail, initial encounter; K44.9 Diaphragmatic hernia without obstruction or gangrene; K29.70 Gastritis, unspecified, without bleeding; B96.5 Pseudomonas (aeruginosa) (mallei) (pseudomallei) as the cause of diseases classified elsewhere; Z86.73 Personal history of transient ischemic attack (TIA), and cerebral infarction without residual deficits; Z68.31 Body mass index [BMI] 31.0-31.9, adult; X58.XXXA Exposure to other specified factors, initial encounter; Y93.89 Activity, other specified; Y92.89 Other specified places as the place of occurrence of the external cause; Y99.8 Other external cause status
CPT/HCPCS: 36415; 36600; 62328; 70551; 70552; 70553; 71045; 74018; 76705; 76770; 80048; 80053; 80076; 80202; 80305; 80307; 80320; 80329; 81003; 82140; 82248; 82375; 82550; 82607; 82728; 82746; 82805; 82945; 82962; 83520; 83540; 83550; 83605; 83735; 83880; 84145; 84155; 84157; 84165; 84443; 84484; 85014; 85018; 85025; 85651; 86038; 86160; 86256; 86592; 87070; 87186; 87426; 87529; 87804; 88305; 88312; 88313; 93005; 93970; 95816; 97110; 97162; 97166; 97530; 99291; A9577; C1893; C9113; J0690; J0692; J0696; J1953; J2543; J2704; J2765; J3370; J3420; J3480; J3490; J7030; J7060; G0480

== ENCOUNTER 2022-12-20 16:17 | Inpatient (IN) | payer MEDICAID, OTHER ==
[~2022-12-20] VITALS: Ht 182.9 cm; Wt 84.8 kg
[2022-12-20] MEDS ORDERED: HYDROCODONE/ACETAMINOPHEN 5/325MG TABLET PO STA (16:55)
[2022-12-20 18:00] LABS: BASOPHILS % 0.2 % (0.0-2.0); EOSINOPHILS % 0.5 % (0.0-5.0); HEMATOCRIT. 43.3 % (42.0-52.0); HEMOGLOBIN. 14.3 g/dL (14.0-18.0); LYMPHOCYTES % 9.5 % (20.0-50.0); MEAN CORPUSCULAR HEMOGLOBIN 27.8 pg (28.0-32.0); MEAN CORPUSCULAR VOLUME 84.3 fL (80.0-94.0); MEAN PLATELET VOLUME 8.9 fl (7.4-10.4); MONOCYTES % 7.5 % (2.0-8.0); NEUTROPHILS % 82.3 % (40.0-76.0); PLATELET 197 x1000/uL (130-400); RED BLOOD CELL COUNT 5.14 mill/uL (4.7-6.1); RED CELL DISTRIBUTION WIDTH 14.9 % (11.6-14.6); WHITE BLOOD COUNT 8.2 x1000/uL (4.5-11.0)
[2022-12-20] MEDS ORDERED: MORPHINE SULFATE 4 MG/ML CPJ (NOT FOR IM USE) IV ONE (18:00)
[2022-12-20 18:11] LABS: CHLORIDE 108 mEq/L (98-107); INDEX HEMOLYSI 4 (1-3); INDEX ICTERIC 1 (1-4); INDEX LIPEMIC 1 (1-3); SODIUM 138 mEq/L (136-145)
[2022-12-20 18:24] LABS: ALANINE AMINOTRANSFERASE 34 IU/L (13-61); ALBUMIN 3.8 g/dL (3.4-5.0); ASPARTATE AMINOTRANSFERASE 35 IU/L (15-37); BILIRUBIN TOTAL 1.3 mg/dL (0.1-1.0); CALCIUM 9.1 mg/dL (8.5-10.1); CARBON DIOXIDE 24 mEq/L (21-32); CREATININE 0.6 mg/dL (0.6-1.3); GLUCOSE 112 mg/dL (70-105); NT PRO B-TYPE NATRIURETIC PEP 30 pg/mL (5-125); PROTEIN TOTAL 7.8 g/dL (6.0-8.3); TROPONIN I HIGH SENSITIVITY 6 ng/L (<78); UREA NITROGEN BLOOD 20 mg/dL (7-21)
[2022-12-20 18:48] LABS: POTASSIUM 4.1 mEq/L (3.5-5.1)
[2022-12-20 21:01] LABS: TROPONIN I HIGH SENSITIVITY 8 ng/L (<78)
[2022-12-22] MEDS ORDERED: GUAIFENESIN 200MG/10ML SUGAR FREE UDC PO PRN (14:15)
[2022-12-22] MEDS ORDERED: LORAZEPAM 2MG/ML CPJ IV PRN (14:15)
[2022-12-22] MEDS ORDERED: LORAZEPAM 0.5MG TABLET PO PRN (14:15)
[2022-12-22] MEDS ORDERED: DIPHENHYDRAMINE 50MG/ML VIAL IV PRN (14:15)
[2022-12-22] MEDS ORDERED: DEXTROSE 50% WATER 50ML SYRINGE IV PRN (14:15)
[2022-12-22] MEDS ORDERED: ACETAMINOPHEN 325MG TABLET PO PRN (14:15)
[2022-12-22] MEDS ORDERED: IPRATROPIUM/ALBUTEROL 0.5-3(2.5)MG/3ML NEB HHN PRN (14:15)
[2022-12-22] MEDS ORDERED: ONDANSETRON HCL 4MG/2ML INJ IV PRN (14:15)
[2022-12-22] MEDS ORDERED: MAGNESIUM/ALUMINUM HYDROXIDE/SIMETHICONE 30ML UDC PO PRN (14:15)
[2022-12-22] MEDS ORDERED: DOCUSATE SODIUM 100MG CAPSULE PO PRN (14:15)
[2022-12-22] MEDS ORDERED: CLONIDINE 0.1MG TABLET PO PRN (14:15)
[2022-12-22 16:23] VITALS: BP 131/88; PULSE 74; RESP 17; TEMP 98.2
[2022-12-22] MEDS: ENOXAPARIN 40MG/0.4ML SYR SUBCUT SCH (17:49)
[2022-12-22] MEDS: INSULIN LISPRO 100 UNITS/ML SUBCUT SCH ×2 (17:50→21:00)
[2022-12-22] MEDS: DEXT 5%/0.45% NACL 500ML 1,000 ML IV SCH (17:50)
[2022-12-22 18:05] LABS: D-DIMER 0.68 mg/L FEU (<0.50)
[2022-12-22 18:35] LABS: FERRITIN 84 ng/mL (22-322)
[2022-12-22 18:38] LABS: VITAMIN B12 SERUM 781 pg/mL (211-911)
[2022-12-22 20:00] VITALS: BP 132/89; PULSE 81; RESP 14; TEMP 97.9
[2022-12-22 23:48] LABS: INDEX HEMOLYSI 1 (1-3)
[2022-12-22 23:57] LABS: CREATINE KINASE 31 IU/L (39-308); CREATINE KINASE MB FRACTION < 1.0 ng/mL (0.5-3.6); TROPONIN I HIGH SENSITIVITY 8 ng/L (<78)
[2022-12-23] VITALS: BP 114/80; PULSE 93; RESP 16; TEMP 97.9
[2022-12-23 04:00] VITALS: BP 121/88; PULSE 95; RESP 18; TEMP 97.9
[2022-12-23 07:35] LABS: INDEX HEMOLYSI 1 (1-3)
[2022-12-23 07:42] LABS: CREATINE KINASE 26 IU/L (39-308); CREATINE KINASE MB FRACTION < 1.0 ng/mL (0.5-3.6); TROPONIN I HIGH SENSITIVITY 7 ng/L (<78)
[2022-12-23] MEDS: INSULIN LISPRO 100 UNITS/ML SUBCUT SCH ×4 (07:50→21:00)
[2022-12-23 08:00] VITALS: BP 128/87; PULSE 94; RESP 19; TEMP 99.5
[2022-12-23 10:09] LABS: CLARITY URINE CLOUDY (CLEAR); COLOR URINE DARK YELLOW (YELLOW); GLUCOSE URINE NEGATIVE (NEGATIVE); KETONES URINE 3+ (NEGATIVE); LEUKOCYTE ESTERASE URINE 1+ (NEGATIVE); NITRITE URINE NEGATIVE (NEGATIVE); OCCULT BLOOD URINE 3+ (NEGATIVE); PH URINE 5.5 (4.5-8.0); PROTEIN URINE 1+ (NEGATIVE)
[2022-12-23] MEDS: DEXT 5%/0.45% NACL 500ML 1,000 ML IV SCH (10:10)
[2022-12-23] MEDS: FAMOTIDINE 20MG/2ML VIAL IV SCH (10:21)
[2022-12-23 10:36] LABS: BACTERIA URINE FEW; RBC URINE 25-50 /hpf (0-2); SQUAMOUS EPITHELIAL CELL URINE NONE SEEN /lpf (RARE/1+); YEAST URINE NONE SEEN
[2022-12-23 10:37] LABS: WBC URINE 25-50 /hpf (0-2)
[2022-12-23 10:51] LABS: *AMPHETAMINES SCREEN URINE NEGATIVE (NEGATIVE); *BARBITURATES SCREEN URINE NEGATIVE (NEGATIVE); *BENZODIAZEPINES SCREEN URINE NEGATIVE (NEGATIVE); *COCAINE SCREEN URINE NEGATIVE (NEGATIVE); CANNABINOID URINE SCREEN NEGATIVE (NEGATIVE); ECSTASY MDMA SCREEN URINE NEGATIVE (NEGATIVE); METHADONE URINE SCREEN NEGATIVE (NEGATIVE); OPIATES URINE SCREEN NEGATIVE (NEGATIVE); PHENCYCLIDINE URINE SCREEN NEGATIVE (NEGATIVE)
[2022-12-23 12:00] VITALS: BP 127/82; PULSE 89; RESP 19; TEMP 99.1
[2022-12-23 16:00] VITALS: BP 117/81; PULSE 88; RESP 19; TEMP 99.3
[2022-12-23] MEDS: ENOXAPARIN 40MG/0.4ML SYR SUBCUT SCH (16:13)
[2022-12-23] MEDS ORDERED: CEFTRIAXONE 1,000 MG in DEXTROSE 5% WATER 50 ML IV SCH (17:00)
[2022-12-23] MEDS ORDERED: GADOTERATE MEGLUMINE 5 MMOL/10 ML VIAL IV ONE (17:18)
[2022-12-23 20:00] VITALS: BP 146/88; PULSE 99; RESP 18; TEMP 98.9
[2022-12-23] MEDS: RISPERIDONE 1MG TABLET PO SCH (21:00)
[2022-12-23 21:38] LABS: BASOPHILS % 0.1 % (0.0-2.0); EOSINOPHILS % 0.4 % (0.0-5.0); HEMATOCRIT. 43.4 % (42.0-52.0); HEMOGLOBIN. 14.5 g/dL (14.0-18.0); LYMPHOCYTES % 8.6 % (20.0-50.0); MEAN CORPUSCULAR HEMOGLOBIN 28.3 pg (28.0-32.0); MEAN CORPUSCULAR HGB CONC 33.4 g/dL (31.0-37.0); MEAN CORPUSCULAR VOLUME 84.6 fL (80.0-94.0); MEAN PLATELET VOLUME 9.4 fl (7.4-10.4); MONOCYTES % 8.2 % (2.0-8.0); NEUTROPHILS % 82.7 % (40.0-76.0); PLATELET 183 x1000/uL (130-400); RED BLOOD CELL COUNT 5.14 mill/uL (4.7-6.1); RED CELL DISTRIBUTION WIDTH 14.6 % (11.6-14.6); WHITE BLOOD COUNT 11.1 x1000/uL (4.5-11.0)
[2022-12-24] MEDS: DEXT 5%/0.45% NACL 500ML 1,000 ML IV SCH ×2 (02:50→19:30)
[2022-12-24 04:00] VITALS: BP 111/73; PULSE 122; RESP 18; TEMP 103.5
[2022-12-24] MEDS: ACETAMINOPHEN 325MG TABLET PO PRN (04:39)
[2022-12-24 07:15] LABS: HEMATOCRIT 42.4 % (42.0-52.0); HEMOGLOBIN 14.1 g/dL (14.0-18.0); MEAN CORPUSCULAR HEMOGLOBIN 28.2 pg (28.0-32.0); MEAN CORPUSCULAR HGB CONC 33.2 g/dL (31.0-37.0); MEAN CORPUSCULAR VOLUME 84.9 fL (80.0-94.0); PLATELET 191 x1000/uL (130-400); RED CELL DISTRIBUTION WIDTH 14.6 % (11.6-14.6); WHITE BLOOD COUNT 16.3 x1000/uL (4.5-11.0)
[2022-12-24] MEDS: INSULIN LISPRO 100 UNITS/ML SUBCUT SCH ×4 (07:50→20:34)
[2022-12-24 08:00] VITALS: BP 120/67; PULSE 85; RESP 18; TEMP 100.8
[2022-12-24 08:16] LABS: CHLORIDE 104 mEq/L (98-107); INDEX HEMOLYSI 1 (1-3); INDEX ICTERIC 1 (1-4); INDEX LIPEMIC 1 (1-3); POTASSIUM 3.1 mEq/L (3.5-5.1); SODIUM 135 mEq/L (136-145)
[2022-12-24 08:42] LABS: ALANINE AMINOTRANSFERASE 15 IU/L (13-61); ALBUMIN 3.6 g/dL (3.4-5.0); ASPARTATE AMINOTRANSFERASE 10 IU/L (15-37); BILIRUBIN TOTAL 2.1 mg/dL (0.1-1.0); CALCIUM 8.9 mg/dL (8.5-10.1); CARBON DIOXIDE 21 mEq/L (21-32); CREATININE 0.7 mg/dL (0.6-1.3); GLUCOSE 122 mg/dL (70-105); PROTEIN TOTAL 7.4 g/dL (6.0-8.3); UREA NITROGEN BLOOD 14 mg/dL (7-21)
[2022-12-24] MEDS: RISPERIDONE 1MG TABLET PO SCH ×2 (09:17→20:29)
[2022-12-24] MEDS: FAMOTIDINE 20MG/2ML VIAL IV SCH (09:17)
[2022-12-24] MEDS: MEROPENEM 1,000 MG in SODIUM CHLORIDE 0.9% 100 ML IV SCH ×2 (09:30→18:00)
[2022-12-24] MEDS ORDERED: VANCOMYCIN 1500MG in DEXTROSE 5% WATER 250ML IV NR (10:00)
[2022-12-24 12:00] VITALS: BP 114/71; PULSE 97; RESP 18; TEMP 100.4
[2022-12-24] MEDS: ENOXAPARIN 40MG/0.4ML SYR SUBCUT SCH (14:47)
[2022-12-24 16:00] VITALS: BP 108/66; PULSE 90; RESP 18; TEMP 100
[2022-12-24] MEDS ORDERED: POTASSIUM CHLORIDE 20MEQ/10ML INJ IV ONE (17:30)
[2022-12-24] MEDS ORDERED: KCL 20MEQ/100ML PREMIX 100 ML IV NR (18:30)
[2022-12-24] MEDS: VANCOMYCIN 1G PREMIX 200 ML IV SCH (19:30)
[2022-12-24 20:00] VITALS: BP 109/75; PULSE 84; RESP 19; TEMP 97.9
[2022-12-24 21:40] LABS: PHOSPHORUS 2.9 mg/dL (2.5-4.9)
[2022-12-25] VITALS (7 sets, daily range): BP systolic 113–147; BP diastolic 67–92; PULSE 85–113; RESP 18–20; TEMP 98.1–100.2; O2SAT 95
[2022-12-25] MEDS: VANCOMYCIN 1G PREMIX 200 ML IV SCH ×3 (02:00→19:00)
[2022-12-25] MEDS: MEROPENEM 1,000 MG in SODIUM CHLORIDE 0.9% 100 ML IV SCH ×3 (02:00→18:00)
[2022-12-25] MEDS: INSULIN LISPRO 100 UNITS/ML SUBCUT SCH ×4 (07:16→20:51)
[2022-12-25 07:39] LABS: HEMATOCRIT 39.1 % (42.0-52.0); HEMOGLOBIN 13.4 g/dL (14.0-18.0); MEAN CORPUSCULAR HEMOGLOBIN 29.1 pg (28.0-32.0); MEAN CORPUSCULAR HGB CONC 34.3 g/dL (31.0-37.0); MEAN CORPUSCULAR VOLUME 84.8 fL (80.0-94.0); PLATELET 162 x1000/uL (130-400); RED BLOOD CELL COUNT 4.61 mill/uL (4.7-6.1); WHITE BLOOD COUNT 11.7 x1000/uL (4.5-11.0)
[2022-12-25 07:40] LABS: CHLORIDE 103 mEq/L (98-107); INDEX HEMOLYSI 1 (1-3); INDEX ICTERIC 1 (1-4); INDEX LIPEMIC 1 (1-3); POTASSIUM 3.4 mEq/L (3.5-5.1); SODIUM 136 mEq/L (136-145)
[2022-12-25 07:57] LABS: ALANINE AMINOTRANSFERASE 12 IU/L (13-61); ALBUMIN 3.2 g/dL (3.4-5.0); ASPARTATE AMINOTRANSFERASE 8 IU/L (15-37); BILIRUBIN TOTAL 1.9 mg/dL (0.1-1.0); CARBON DIOXIDE 24 mEq/L (21-32); CREATININE 0.7 mg/dL (0.6-1.3); GLUCOSE 125 mg/dL (70-105); PROTEIN TOTAL 7.3 g/dL (6.0-8.3); UREA NITROGEN BLOOD 10 mg/dL (7-21)
[2022-12-25] MEDS: RISPERIDONE 1MG TABLET PO SCH ×2 (08:16→20:51)
[2022-12-25] MEDS: FAMOTIDINE 20MG/2ML VIAL IV SCH (08:16)
[2022-12-25] MEDS ORDERED: POTASSIUM CHLORIDE 20MEQ/10ML INJ IV ONE (10:00)
[2022-12-25] MEDS ORDERED: KCL 20MEQ/100ML PREMIX 100 ML IV NR (12:00)
[2022-12-25] MEDS: DEXT 5%/0.45% NACL 500ML 1,000 ML IV SCH (12:23)
[2022-12-25] MEDS: ENOXAPARIN 40MG/0.4ML SYR SUBCUT SCH (16:50)
[2022-12-25 18:50] LABS: AMMONIA 28 uMol/L (<32)
[2022-12-25] MEDS: ACETAMINOPHEN 325MG TABLET PO PRN (22:25)
== END 2022-12-25 23:58 | DRG 720 ==
LOC: ER 16:17 → 6EST 12-22 11:32 → EDBEDREQTM 12-22 11:36 → EDBEDREQ 12-22 11:36
PROVIDERS: ADMIT Internal Medicine; ATTEND Internal Medicine
DX: A41.9 Sepsis, unspecified organism (principal); G93.41 Metabolic encephalopathy; C71.9 Malignant neoplasm of brain, unspecified; F06.1 Catatonic disorder due to known physiological condition; R62.7 Adult failure to thrive; N39.0 Urinary tract infection, site not specified; R13.10 Dysphagia, unspecified; Z66 Do not resuscitate; E80.6 Other disorders of bilirubin metabolism; Z20.822 Contact with and (suspected) exposure to COVID-19; I10 Essential (primary) hypertension; F32.A Depression, unspecified; E66.9 Obesity, unspecified; G40.909 Epilepsy, unspecified, not intractable, without status epilepticus; K80.20 Calculus of gallbladder without cholecystitis without obstruction; E87.6 Hypokalemia; Z74.01 Bed confinement status; Z87.19 Personal history of other diseases of the digestive system; Z93.1 Gastrostomy status; Z68.25 Body mass index [BMI] 25.0-25.9, adult; Z79.899 Other long term (current) drug therapy; Z87.440 Personal history of urinary (tract) infections; Z91.51 Personal history of suicidal behavior
CPT/HCPCS: 36415; 70553; 71045; 76700; 80053; 80305; 81003; 82140; 82550; 82553; 82607; 82728; 82962; 83036; 83540; 83550; 83605; 83735; 83880; 84100; 84145; 84484; 85025; 85027; 85379; 93005; 93306; 93970; 96374; 99285; A9577; J0696; J1650; J1815; J2185; J2270; J3370; J3480; J3490; J7050; J7060